=== PATIENT | male | born 1990 | race Two or more races ===

== ENCOUNTER → 2017-04-18 | Outpatient (CLI) | payer OTHER ==
[~2017-04-18] MED LIST: IOHEXOL 300 MG/ML 100ML BOTTLE IJ ONE
[2017-04-18 09:53] LABS: Potassium 4.8 mmol/L (3.5-5.1)
[2017-04-18 09:54] LABS: Calcium 8.8 mg/dL (8.5-10.1)
== END | disposition home or self-care (01) ==
LOC: CT 09:03
DX: J84.10 Pulmonary fibrosis, unspecified (principal)
CPT/HCPCS: 36415; 71260; 80048; Q9967